=== PATIENT | male | born 1950 | race Caucasian/White ===

== ENCOUNTER 2018-10-30 10:46 | Emergency (ER) | payer BC ==
--- NOTE | 2018-10-30 11:11 | Emergency Department Record ---
History of Present Illness - General Chief Complaint: Abdominal Pain Stated Complaint: LOWER ABD PAIN Time Seen by Provider: 10/30/18 10:56 Source: Patient Mode of Arrival: Ambulatory Limitations: No limitations - History of Present Illness Initial Comments: The patient is here due to lower abdominal pain for a year. The symptoms come and go and are associated with intermittent dysuria. The patient states he has had prostatitis similar to this in the past. He states he had lower abdominal pressure last night which has resolved and that is why he came to the ER today. There is no hx of fever, chills, nausea, vomiting, or diarrhea. Onset/Timin -: Year(s) Improves With: Nothing, Medication Worsens With: Nothing - Related Data Home Medications Medication Instructions Recorded Confirmed Last Taken Amoxicillin 500 mg PO BID 10/30/18 10/30/18 10/30/18 Allergies Allergy/AdvReac Type Severity Reaction Status Date / Time sulfamethoxazole Allergy Intermediate red rash, Unverified 09/10/18 15:36 [From Bactrim] hives trimethoprim [From Bactrim] Allergy Intermediate red rash, Unverified 09/10/18 15:36 hives Sulfa (Sulfonamide Allergy Unknown HIVES Unverified 09/10/18 15:36 Antibiotics) peanut Allergy ITCHING Unverified 09/10/18 15:36 Travel Screening - Travel/Exposure Within Last 30 Days Have you traveled within the last 30 days?: No - Travel/Exposure Within Last Year Have you traveled outside the [place] in the last year?: No - Additonal Travel Details Have you been exposed to anyone with a communicable illness?: No - Travel Symptoms Symptom Screening: None Review of Systems Constitutional: Denies: Chills, Fever Eyes: Denies: Eye discharge ENT: Denies: Congestion, Throat pain Respiratory: Denies: Cough, Dyspnea Past Medical History - SOCIAL HISTORY Smoking Status: Former smoker Alcohol Use: Rare Drug Use: None - RESPIRATORY Hx Respiratory Disorders: No - CARDIOVASCULAR Hx Cardio Disorders: No - NEURO Hx Neuro Disorders: Yes Hx Neuropathy: Yes (left arm numbness at times) - GI Hx GI Disorders: No - Hx Genitourinary Disorders: Yes Hx Kidney Stones: Yes Hx Prostate Problems: Yes - ENDOCRINE Hx Endocrine Disorders: Yes Hx Diabetes: Yes (TYPE II) Comment:: HYPOGLYCEMIC ISSUES. - MUSCULOSKELETAL Hx Musculoskeletal Disorders: Yes Comment:: numbness, neck pain - PSYCH Hx Psych Problems: No - HEMATOLOGY/ONCOLOGY Hx Hematology/Oncology Disorders: No Family Medical History Any Significant Family History?: No Hx Heart Disease: Mother Hx HTN: Father Hx Stroke: Father Physical Exam - General General Appearance: Alert, Oriented x3, Cooperative, No acute distress - Head Head exam: Atraumatic, Normocephalic, Normal inspection - Eye Eye exam: Normal appearance, PERRL, EOMI - ENT Throat exam: Normal inspection. negative: Tonsillar erythema, Tonsillar exudate - Neck Neck exam: Normal inspection, Full ROM. negative: Tenderness - Respiratory Respiratory exam: Normal lung sounds bilaterally. negative: Respiratory distress - Cardiovascular Cardiovascular Exam: Regular rate, Normal rhythm, Normal heart sounds - GI/Abdominal GI/Abdominal exam: Soft, Normal bowel sounds. negative: Rebound, Rigid, Tenderness - exam: Circumcision, Normal inspection. negative: Scrotal swelling, Testicular tenderness, Urethral discharge - Extremities Extremities exam: Normal inspection - Neurological Neurological exam: Alert. negative: Motor sensory deficit Course Vital Signs 10/30/18 10:53 Pulse Rate [ 96 H Pulse Ox Probe] Respiratory 18 Rate Blood Pressure 143/85 [Left Arm] Pulse Ox 95 - Reevaluation(s) Reevaluation #1: The patient is doing well at this time. I did discuss his normal urine result and the fact I do not see any indication for an Abx. The patient is very concerned about his prostate and would REALLY like and antibiotic. I did discuss the case with the patient's PCP who does agree with me and he will see the patient in the morning tomorrow for recheck. 10/30/18 12:15 Medical Decision Making - Data Complexity MDM Data: Labs Ordered and/or Reviewed - Lab Data Result diagrams: 10/30/18 11:10 10/30/18 11:10 Disposition Disposition: Discharge Clinical Impression: History of dysuria Disposition: Home, Self-Care Condition: (2) Stable Instructions: Dysuria (ED) Additional Instructions: Please drink plenty of fluids and watch what you eat. Please see Dr. Toney tomorrow morning at 8:20 AM for recheck. Forms: Patient Portal Access Time of Disposition: 12:14 Quality - Quality Measures Quality Measures: N/A - Blood Pressure Screening View Details: Yes Does Patient Have Any of the Following: No Blood Pressure Classification: Pre-Hypertensive BP Reading Systolic Measurement: 143 Diastolic Measurement: 85 Screening for High Blood Pressure: < Pre-Hypertensive BP, F/U Documented > [[id number]] Pre-Hypertensive Follow-up Interventions: Referral to alternative/primary care provider.
[2018-10-30 11:20] LABS: ABSOLUTE NEUTROPHIL COUNT 5.14; BASO % 0.2 % (0-6); EOS % 2.3 % (0-6); GRAN % 52.3 % (47-80); HEMATOCRIT 44.1 % (42.0-52.0); HEMOGLOBIN 14.9 gm/dl (14.0-18.0); LYMPH % 37.6 % (16-45); MEAN CELL VOLUME 95.7 fl (81-97); MEAN CORPUSCULAR HEMOGLOBIN 32.3 pg (27-33); MEAN CORPUSCULAR HGB CONC 33.8 g/dl (32-36); MEAN PLATELET VOLUME 9.3 fl (7.4-10.4); MONO % 7.6 % (0-9); PLATELET COUNT 308 K/uL (130-400); RED BLOOD COUNT 4.61 M/uL (4.40-5.70); RED CELL DISTRIBUTION WIDTH 13.7 % (11.5-14.5); WHITE BLOOD COUNT W/O DIFF 9.8 K/uL (4.2-12.2)
[2018-10-30 11:34] LABS: BLOOD UREA NITROGEN 15 mg/dL (8-23); CREATININE 0.6 mg/dL (0.7-1.2); EST GLOMERULAR FILTRATION RATE > 60 mL/min
[2018-10-30 11:36] LABS: GLUCOSE,RANDOM 270 mg/dL (74-109)
[2018-10-30 11:39] LABS: ALB/GLOB RATIO 1.3 (1.1-1.8); ALBUMIN 4.5 g/dL (4.0-5.0); ALKALINE PHOSPHATASE 73 U/L (40-129); ALT/SGPT 57 U/L (<41); AST/SGOT 41 U/L (10.0-50.0)
[2018-10-30 11:50] LABS: URINE APPEARANCE CLEAR; URINE BILIRUBIN SMALL (NEGATIVE); URINE BLOOD NEGATIVE (NEGATIVE); URINE COLOR YELLOW; URINE KETONE TRACE (NEGATIVE); URINE LEUKOCYTE ESTERASE NEGATIVE (NEGATIVE); URINE NITRITE NEGATIVE (NEGATIVE); URINE PROTEIN TRACE (NEGATIVE)
== END 2018-10-30 12:19 | disposition home or self-care (01) ==
LOC: ER 10:46
DX: R30.0 Dysuria (principal); R10.30 Lower abdominal pain, unspecified
CPT/HCPCS: 80053; 81003; 85025; 99283; 99284